=== PATIENT | female | born 1985 | race Caucasian/White ===

== ENCOUNTER → 2020-06-04 | Outpatient (CLI) | payer BC ==
--- NOTE | 2020-06-04 15:01 | RAD ---
DATE: 06/04/2020 1:30 PM EXAM: BREAST BILATERAL, MAMMO ELLEN DIAG BILAT HISTORY: 34-year-old woman with palpable lump in the left breast. COMPARISON: None. This is a baseline. TECHNIQUE: Bilateral CC and MLO views of the breasts were performed. Bilateral breast tomosynthesis was performed in CC and MLO projections. This study was interpreted with the benefit of Computerized Aided Detection (CAD). Thereafter, targeted ultrasound of both breasts was performed. FINDINGS: Breast Density: HETERO The breast parenchyma Is heterogeneously dense, which could reduce sensitivity of mammography. Breast parenchyma level C Nodular parenchymal pattern compatible benign cystic change. In the right breast, a dense asymmetry in the superior subareolar right breast at the 12:00 position measuring 8 mm is seen and was pursued for additional imaging with targeted right breast ultrasound, which showed a sonographically benign cluster of cysts with no suspicious features. In the left breast, the area of palpable concern as marked with a BB marker in the lateral middle third left breast appears to correlate to the 2 cm oval isodense circumscribed mass within the left breast parenchyma. Ultrasound of the left breast in the area of palpable concern showed ill-defined hypoechoic tissue measuring 1.8 cm in the antiradial orientation of the 2:00 position 5 cm from the nipple embedded within dense fibroglandular tissue. This is of low index of suspicion for malignancy but is considered suspicious and recommended for ultrasound-guided core needle biopsy. IMPRESSION: Suspicious palpable mass in the lateral left breast, a low index of suspicion for malignancy, possibly representing fibrocystic change. However ultrasound-guided core needle biopsy is recommended for tissue diagnosis. Discussed with patient. BI-RADS CATEGORY: 4 SUSPICIOUS ABNORMALITY- BIOPSY SHOULD BE CONSIDERED RECOMMENDED FOLLOW-UP: BIO BIOPSY RECOMMENDED Telephone report given to patient's referring provider's office at 2:40 PM on 06/04/2020 where Penelope took the report on behalf of Lauren Faria NP. PQRS compliance statement: Patient information was entered into a reminder system with a target due date for the next mammogram. Mammography is a sensitive method for finding small breast cancers, but it does not detect them all and is not a substitute for careful clinical examination. A negative mammogram does not negate a clinically suspicious finding and should not result in delay in biopsying a clinically suspicious abnormality. "Our facility is accredited by the [employer] Mammography Program."
== END | disposition home or self-care (01) ==
LOC: US 13:04
PROVIDERS: ATTEND Nurse Practitioner Women's Health
DX: R92.2 Inconclusive mammogram (principal); N63.21 Unspecified lump in the left breast, upper outer quadrant
CPT/HCPCS: 76641; 77066; G0279; 77062